=== PATIENT | male | born 1940 | race Caucasian/White ===

== ENCOUNTER 2023-12-03 18:52 | Emergency (ER) | payer OTHER ==
[~2023-12-03] VITALS: Ht 180.3 cm; Wt 89.4 kg
[2023-12-03 19:19] VITALS: BP_SYST 139; PULSE 70; RESP 20; TEMP 97.9; O2SAT 98
[2023-12-03] MEDS ORDERED: ACETAMINOPHEN 500 MG TABLET PO ONE (21:45)
[2023-12-03] MEDS ORDERED: LIDO1ADH22 TP (21:47)
[2023-12-03] MEDS ORDERED: DICL20GE TP (21:47)
[2023-12-03] MEDS ORDERED: ACET-2634 PO (21:47)
[2023-12-03] MEDS ORDERED: LIDOCAINE PATCH 5% 1 EA TP ONE (22:45)
[2023-12-03 23:00] VITALS: BP_SYST 121; PULSE 64; RESP 20; TEMP 98; O2SAT 97
== END 2023-12-03 23:06 | disposition home or self-care (01) ==
LOC: SED 18:52
DX: S33.5XXA Sprain of ligaments of lumbar spine, initial encounter (principal); S13.4XXA Sprain of ligaments of cervical spine, initial encounter; S09.90XA Unspecified injury of head, initial encounter; M47.896 Other spondylosis, lumbar region; I10 Essential (primary) hypertension; E78.5 Hyperlipidemia, unspecified; Z79.899 Other long term (current) drug therapy; W01.0XXA Fall on same level from slipping, tripping and stumbling without subsequent striking against object, initial encounter; Y93.89 Activity, other specified; Y92.89 Other specified places as the place of occurrence of the external cause; Y99.8 Other external cause status
CPT/HCPCS: 70450-TC; 72125-TC; 72131; 76376; 99284

== ENCOUNTER 2024-04-02 15:07 | Emergency (ER) | payer OTHER ==
[~2024-04-02] VITALS: Ht 180.3 cm; Wt 90.7 kg
[~2024-04-02 15:07] MED LIST: ACET-2634 PO; DICL20GE TP; LIDO1ADH22 TP
[2024-04-02 15:43] VITALS: BP_SYST 137; PULSE 59; RESP 16; TEMP 97.8; O2SAT 94
[2024-04-02 17:13] VITALS: BP_SYST 137; PULSE 59; RESP 16; TEMP 97.8; O2SAT 94
== END 2024-04-02 17:13 | disposition home or self-care (01) ==
LOC: SED 15:07
DX: S00.83XA Contusion of other part of head, initial encounter (principal); I10 Essential (primary) hypertension; I25.2 Old myocardial infarction; E78.5 Hyperlipidemia, unspecified; Z88.8 Allergy status to other drugs, medicaments and biological substances; Z79.899 Other long term (current) drug therapy; X58.XXXA Exposure to other specified factors, initial encounter; Y93.89 Activity, other specified; Y92.89 Other specified places as the place of occurrence of the external cause; Y99.8 Other external cause status
CPT/HCPCS: 70450-TC; 99284

== ENCOUNTER 2024-06-01 13:38 | Emergency (ER) | payer OTHER ==
[~2024-06-01] VITALS: Ht 180.3 cm; Wt 90.7 kg
[2024-06-01 13:53] VITALS: BP_SYST 144; PULSE 61; RESP 16; TEMP 98.1; O2SAT 96
[2024-06-01 14:31] LABS: ERYTHROCYTE SEDIMENTATION RATE 7 MM/HR (0-15)
[2024-06-01 14:34] LABS: BASOPHILS % (AUTO) 0.5 % (0.0-2.0); EOSINOPHILS # (AUTO) 0.3 K/uL (0.0-0.4); EOSINOPHILS % (AUTO) 3.9 % (0.0-4.0); HEMATOCRIT 43.7 % (36-54); LYMPHOCYTES # (AUTO) 2.1 K/uL (1.0-5.5); LYMPHOCYTES % (AUTO) 26.8 % (20.5-51.5); MEAN CORPUSCULAR HEMOGLOBIN 30 pg (27-31); MEAN CORPUSCULAR HGB CONC 34 % (32-36); MEAN CORPUSCULAR VOLUME 88 fL (79.0-98.0); MONOCYTES # (AUTO) 0.7 K/uL (0.0-1.0); MONOCYTES % (AUTO) 8.9 % (1.7-9.3); NEUTROPHILS # (AUTO) 4.8 K/uL (1.8-7.7); NEUTROPHILS % (AUTO) 59.9 % (40.0-70.0); PLATELET COUNT (AUTO) 191 K/uL (130-430); RED BLOOD CELL COUNT(AUTO) 4.96 MIL/uL (4.2-6.2); RED CELL DISTRIBUTION WIDTH 14.5 % (9.0-15.0); WHITE BLOOD COUNT (AUTO) 7.9 K/uL (4.8-10.8)
[2024-06-01 14:54] LABS: ALANINE AMINOTRANSFERASE 19 U/L (12-78); ALBUMIN 3.9 g/dL (3.4-4.8); ANION GAP 6 (5-15); ASPARTATE AMINOTRANSFERASE 14 U/L (10-37); CALCIUM 9.4 mg/dL (8.4-11.0); CARBON DIOXIDE 30 mmol/L (23-29); CHLORIDE 106 mmol/L (98-107); CREATININE 1.07 mg/dL (0.55-1.30); GLUCOSE 99 mg/dL (74-106); POTASSIUM 4.6 mmol/L (3.5-5.1); SODIUM SERUM 142 mmol/L (136-145); TOTAL BILIRUBIN 0.6 mg/dL (0.0-1.0); TOTAL PROTEIN, SERUM 7.4 g/dL (6.4-8.3); UREA NITROGEN, BLOOD 21 mg/dL (8-21)
[2024-06-01 14:58] LABS: INR 1.1 (0.80-1.20)
[2024-06-01 15:04] LABS: BILIRUBIN,DIRECT 0.2 mg/dL (0.0-0.3); URIC ACID 5.9 mg/dL (2.4-7.0)
[2024-06-01] MEDS ORDERED: HYDR-3917 PO (16:15)
[2024-06-01] MEDS ORDERED: IBUP-1969 PO (16:15)
[2024-06-01] MEDS: KETOROLAC TROMETHAMINE 60 MG/2 ML VIAL IM ONE (16:25)
[2024-06-01 16:43] VITALS: BP_SYST 144; PULSE 61; RESP 16; TEMP 98.1; O2SAT 96
== END 2024-06-01 16:41 | disposition home or self-care (01) ==
LOC: SED 13:38
DX: M54.9 Dorsalgia, unspecified (principal); R10.9 Unspecified abdominal pain; I25.2 Old myocardial infarction; I10 Essential (primary) hypertension; E78.5 Hyperlipidemia, unspecified; Z88.8 Allergy status to other drugs, medicaments and biological substances; Z79.899 Other long term (current) drug therapy; Z79.2 Long term (current) use of antibiotics
CPT/HCPCS: 99285; 72192; 80076; 80048; 84550; 85025; 85610; 85651; 85730; 36415; 96372; 82397; J1885